=== PATIENT | male | born 1955 | race Caucasian/White ===

== ENCOUNTER 2017-11-05 14:05 | Inpatient (IN) | payer OTHER ==
[~2017-11-05] VITALS: Ht 177.8 cm; Wt 90.7 kg
--- NOTE | 2017-11-05 15:11 | ED GENERAL ADULT ---
See Addendum History of Present Illness General Chief Complaint: ETOH/Drug Related Complaint Stated Complaint: ETOH DETOX/[facility] Source: patient, family Exam Limitations: no limitations Vital Signs & Intake/Output Vital Signs & Intake/Output Vital Signs Date Time Temp Pulse Resp B/P B/P Pulse O2 O2 Flow FiO2 Mean Ox Delivery Rate 11/05 2246 98.0 68 18 148/78 11/05 2131 98.3 77 18 186/91 11/05 2125 98.3 77 18 186/91 98 Room Air 11/05 2030 98.0 78 18 165/84 11/05 1836 98.3 95 18 130/80 95 Room Air 11/05 1834 98.1 102 17 204/95 11/05 1834 98.1 102 17 204/95 11/05 1830 98.3 95 18 130/80 11/05 1635 98.1 102 17 204/95 11/05 1626 98.1 102 18 204/95 97 Room Air 11/05 1517 97 11/05 1425 97.5 88 20 218/105 97 Room Air Allergies Coded Allergies: No Known Allergies (11/05/17) Reconcile Medications Amlodipine Besylate 10 MG TABLET 1 TAB PO DAILY BP (Reported) Clonidine HCl 0.2 MG TABLET 1 TAB PO DAILY ANXIETY (Reported) Lisinopril 20 MG TABLET 1 TAB PO DAILY BP (Reported) Triage Note: REQUESTING DETOX FROM ETOH. USUALLY DRINKS OVER A 12 PACK OF BEER AND A LITER OF VODKA DAILY. DENIED SEIZURES WITH DETOX. DENIED SI/HI Triage Nurses Notes Reviewed? yes HPI: 62 yo M PMH HTN, HLD, EtOH abuse presenting with EtOH withdrawal. Patient normally drinks 1 L of hard alcohol and a 12 pack of beer daily, has been drinking heavily for "years", had 4-5 beers this morning, last drink 2 hrs ago, began to develop tremors and anxiety prompting presentation to the ED, desires EtOH detox at [facility] facility. Denies fevers, chest pain, palpitation, SOB, abdominal pain, N/V, diarrhea, headache, neck pain, syncope, seizures, falls or trauma. Denies illicit drug use. Hx of HTN, take lisinoprol/amlodipine, took dose yesterday, did not take today. (Kavya FRASER,Robert) Past History Travel History Traveled to [place] past 21 day No Medical History Any Pertinent Medical History? see below for history Cardiovascular: HTN, HIGH CHOLESTEROL Psychiatric: ETOH ABUSE Surgical History Surgical History: none Psychosocial History What is your primary language Lithuanian Tobacco Use: Current Daily Use Daily Tobacco Use Amount/Type: => 5 Cigarettes daily Family History Hx Contributory? Yes (Robert Hoff MD) Review of Systems Review of Systems Constitutional: Reports: see HPI. EENTM: Reports: no symptoms. Respiratory: Reports: no symptoms. Cardiovascular: Reports: no symptoms. GI: Reports: no symptoms. Genitourinary: Reports: no symptoms. Musculoskeletal: Reports: no symptoms. Skin: Reports: no symptoms. Neurological/Psychological: Reports: see HPI. Hematologic/Endocrine: Reports: no symptoms. Immunologic/Allergic: Reports: no symptoms. All Other Systems: Reviewed and Negative (Robert Hoff MD) Physical Exam Physical Exam General Appearance: well developed/nourished, no apparent distress, alert, anxious Eyes: Bilateral: PERRL, EOMI. Ears, Nose, Throat: Dry mucous membranes Neck: normal inspection, full range of motion, no midline tenderness Respiratory: normal breath sounds, lungs clear Cardiovascular: tachycardia Gastrointestinal: soft, non-tender Neurologic/Psych: Tremors Comments: General: Awake, alert, appears tremulous and anxious Neurologic: Bilateral upper extremity tremors and tongue fasiculations Core Measures ACS in differential dx? No CVA/TIA Diagnosis: No Sepsis Present: No Sepsis Focused Exam Completed? No (Robert Hoff MD) Progress Differential Diagnoses I considered the following diagnoses in my evaluation of the patient: [EtOH withdrawal, HTN, less likely DTs] Plan of Care: Orders Procedure Date/time Status Pathway - chart 11/05 1515 Active CIWA 11/05 1515 Active URINE DRUG SCREEN FOR ER ONLY 11/05 1421 Complete LIPASE 11/05 1421 Complete ETHANOL 11/05 1421 Complete COMPREHENSIVE METABOLIC PANEL 11/05 1421 Complete CBC WITHOUT DIFFERENTIAL 11/05 1421 Complete Current Medications Sig/Venkatesh Start time Last Medication Dose Stop Time Status Admin Lorazepam 2 MG Q2P PRN 11/05 1830 AC 11/05 (Ativan) 2136 Lorazepam 1 MG Q2P PRN 11/05 1830 AC 11/05 (Ativan) 2252 Folic Acid 1 MG DAILY 11/05 1515 UNVr 11/05 (Folic Acid) 04/17 0901 1550 Multivitamins 1 TAB DAILY 11/05 151 UNVr 11/05 (Theragran Vitamins) 1550 Thiamine HCl 100 MG DAILY 11/05 151 UNVr 11/05 (Vitamin B1) 1550 Laboratory Tests 11/05/17 1508: Anion Gap 13, Estimated GFR > 60, BUN/Creatinine Ratio 17.5, Glucose 92, Calcium 8.5, Total Bilirubin 0.5, AST 33, ALT 31, Alkaline Phosphatase 128 H, Total Protein 6.9, Albumin 3.9, Globulin 3.0, Albumin/Globulin Ratio 1.3, Lipase 130, CBC w Diff NO MAN DIFF REQ, RBC 4.37 L, MCV 90.5, MCH 30.8, MCHC 34.0, RDW 14.4 , MPV 7.1 L, Gran % 61.8, Lymphocytes % 21.2, Monocytes % 14.3 H, Eosinophils % 1.8, Basophils % 0.9, Absolute Granulocytes 3.3, Absolute Lymphocytes 1.1 L, Absolute Monocytes 0.8 H, Absolute Eosinophils 0.1, Absolute Basophils 0, Serum Alcohol 210.0 11/05/17 1501: Urine Opiates Screen < 100, Methadone Screen < 40, Barbiturate Screen < 60, Ur Phencyclidine Scrn < 6.00, Amphetamines Screen < 100, U Benzodiazepines Scrn < 85, Urine Cocaine Screen < 50, Urine Cannabis Screen < 5.00 Physician MDM: 62 yo M PMH HTN, HLD, EtOH abuse presenting with EtOH withdrawal. Tachycardic in the 100s, BP 200s systolic, neurologic exam as above. DDx: EtOH withdrawal, DTs, dehydration, untreated essential HTN. 2 mg IV ativan for withdrawal, 1L NS for presumed dehydration in the setting of excessive EtOH consumption, vitamins ordered, plan to monitor on CIWA with prn PO ativan, eventual transfer to outpatient detox. BP minimally improed with ativan, but tremors resolved and patient sleeping, will give missed daily antihypertensives. Plan to monitor overnigh, D/C to [facility] if CIWAs minimal and Sx controlled on PO medications. Initial ED EKG: none (Kavya FRASER,Robert) Departure Departure Disposition: STILL A PATIENT Condition: Stable Clinical Impression Primary Impression: Alcohol withdrawal Referrals: Patient Has No Primary Care Dr (PCP/Family) Departure Forms: Customer Survey General Discharge Information (Robert Hoff MD) Resident Co-Sign Statement Statement: ED Attending supervision documentation- I saw and evaluated the patient. I have also reviewed all the pertinent lab results and diagnostic results. I agree with the findings and the plan of care as documented in the Resident's documentation. x I have reviewed the ED Record and agree with the Resident's documentation. [] Additions or exceptions (if any) to the Resident's note and plan are summarized below: [] (Lauri FRASER,Armando) Critical Care Note Critical Care Note Critical Care Time: non-applicable (Kavya FRASER,Robert)
[2017-11-05 15:18] LABS: ABSOLUTE BASOPHIL COUNT 0 /CUMM (0.0-0.2); ABSOLUTE EOSINOPHIL COUNT 0.1 /CUMM (0.0-0.7); ABSOLUTE GRANULOCYTE CT 3.3 /CUMM (1.4-6.5); ABSOLUTE LYMPH COUNT 1.1 /CUMM (1.2-3.4); ABSOLUTE MONOCYTE COUNT 0.8 /CUMM (0.10-0.60); BASOPHIL % 0.9 % (0.0-2.0); EOSINOPHIL % 1.8 % (0-5); GRANULOCYTE % 61.8 % (42.2-75.2); HEMATOCRIT 39.5 % (42-52); MEAN CORPUSCULAR HGB 30.8 PG (27.0-31.0); MEAN CORPUSCULAR VOLUME 90.5 FL (80.0-94.0); MEAN PLATELET VOLUME 7.1 FL (7.4-10.4); PLATELET COUNT 294 /CUMM (130-400); RBC DISTRIBUTION WIDTH 14.4 % (11.5-14.5); RED BLOOD CELL CT 4.37 /CUMM (4.70-6.10); WHITE BLOOD CELL COUNT 5.3 /CUMM (4.8-10.8)
[2017-11-05 16:35] VITALS: BP 204/95
[2017-11-05 18:30] VITALS: BP 130/80
[2017-11-05] MEDS ORDERED: AMLODIPINE BESY10 M1 PO (18:58)
[2017-11-05] MEDS ORDERED: LISINOPRIL20 M1 PO (18:58)
[2017-11-05] MEDS ORDERED: CLONIDINE HCL0.2 M1 PO (18:58)
[2017-11-05 20:30] VITALS: BP 165/84
[2017-11-05 21:31] VITALS: BP 186/91
[2017-11-05 22:47] VITALS: BP 148/78
[2017-11-05 23:45] VITALS: BP 146/84
[2017-11-06] VITALS (10 sets, daily range): BP systolic 148–178; BP diastolic 82–110
--- NOTE | 2017-11-06 17:00 | History & Physical ---
Oni Pablo MD 11/06/17 0839: General Information and HPI History of Present Illness: Mr. Funez is a 62-year-old male with past medical history of hypertension, hyperlipidemia, and alcohol abuse who presents seeking detox from alcohol. The patient reports that he has been drinking every day for the past 5 months. Previously, he was clean for 3 months. He has been drinking about one fifth of vodka and 6 pack of beer per day. His longest period of sobriety has been 9 years and he has been to rehabilitation 3-4 times. He has been previously hospitalized for alcohol detox. He is currently looking to become sober. He denies any chest pain, shortness of breath, bone pain, nausea, vomiting, dysuria , diarrhea, fevers, or rash. He is a current smoker. Allergies/Medications Allergies: Coded Allergies: No Known Allergies (11/05/17) Home Med list Amlodipine Besylate 10 MG TABLET 1 TAB PO DAILY BP (Reported) Clonidine HCl 0.2 MG TABLET 1 TAB PO DAILY ANXIETY (Reported) Lisinopril 20 MG TABLET 1 TAB PO DAILY BP (Reported) Past History Travel History Traveled to [place] past 21 day No Medical History Cardiovascular: HTN, HIGH CHOLESTEROL Psychiatric: ETOH ABUSE Surgical History Surgical History: none Past Family/Social History Psychosocial History Smoking Status: Current Everyday Smoker ETOH Use: alcoholic Illicit Drug Use: denies illicit drug use Review of Systems Review of Systems Constitutional: Reports: no symptoms. EENTM: Reports: no symptoms. Cardiovascular: Reports: no symptoms. Respiratory: Reports: no symptoms. GI: Reports: no symptoms. Genitourinary: Reports: no symptoms. Musculoskeletal: Reports: no symptoms. Skin: Reports: no symptoms. Neurological/Psychological: Reports: see HPI. Hematologic/Endocrine: Reports: no symptoms. Immunologic/Allergic: Reports: no symptoms. All Other Systems: Reviewed and Negative Exam & Diagnostic Data Last 24 Hrs of Vital Signs/I&O Vital Signs Date Time Temp Pulse Resp B/P B/P Pulse O2 O2 Flow FiO2 Mean Ox Delivery Rate 11/06 1556 98.3 78 18 178/110 11/06 1549 98.3 78 18 178/110 98 Room Air 11/06 1441 97.4 74 18 172/100 100 11/06 1339 97.1 108 18 175/100 11/06 1339 97.1 108 18 175/100 11/06 1339 97.1 108 18 175/100 11/06 1321 97.1 108 18 175/100 100 11/06 1135 98.4 78 18 181/100 98 11/06 1036 97.8 95 20 148/90 11/06 1014 95 148/90 11/06 0900 97.8 95 20 148/90 98 11/06 0158 98.0 78 18 152/82 96 Room Air 11/06 0147 98.0 78 18 152/82 11/06 0034 98.3 84 18 179/102 Room Air 11/05 2345 97.8 82 18 146/84 11/05 2345 97.8 82 18 146/84 96 Room Air 11/05 2247 98.0 68 18 148/78 11/05 2131 98.3 77 18 186/91 11/05 2125 98.3 77 18 186/91 98 Room Air 11/05 2030 98.0 78 18 165/84 11/05 1836 98.3 95 18 130/80 95 Room Air 11/05 1834 98.1 102 17 204/95 11/05 1834 98.1 102 17 204/95 11/05 1830 98.3 95 18 130/80 Physical Exam General Appearance Alert, Oriented X3, Cooperative, Mild Distress, tremulous, anxious Cardiovascular Regular Rate, Normal S1, Normal S2 Lungs Clear to Auscultation Abdomen Normal Bowel Sounds, Soft, No Tenderness Neurological Normal Speech Assessment/Plan Assessment: Mr. Funez is a 62-year-old male with past medical history of hypertension, hyperlipidemia, and alcohol abuse who presents seeking detox from alcohol. On presentation, vital signs were T 97.5, HR 80, RR 20, BP 07/25/2017/105, saturating 97% on room air. Blood pressure improved to 170/110. Laboratories were sticking for hemoglobin 13.4, MCV 90.5, normal BEP, alkaline phosphatase 128, alcohol level to 10. He will be admitted to general medicine and treated for following problems: 1. Alcohol withdrawal 2. Normocytic anemia 3. Hypertension #Alcohol withdrawal: Patient requesting detox. -Lorazepam 2 mg every 6 hours -[facility] protocol -Multivitamins, thiamine, folic acid -Social work consult -Psychiatry consult #Hypertension: Patient hypertensive to 200 systolic, improved with lisinopril and amlodipine. -Continue lisinopril, clonidine and amlodipine. -Monitor BP #Normocytic anemia: Likely secondary to alcohol use. -Iron studies #Chronic medical problems: -Continue other home medications DVT prophylaxis with enoxaparin Heart healthy diet Full code As Ranked By This Provider Problem List: 1. Alcohol withdrawal Core Measures/Misc (04/09) Acute Coronary Syndrome ACS Diagnosis: No Congestive Heart Failure Congestive Heart Failure Diagnosis No Cerebrovascular Accident CVA/TIA Diagnosis: No VTE (View Protocol) VTE Risk Factors Age>40 No Mechanical VTE Prophylaxis d/t N/A MechProphylax Ordered No VTE Pharm Prophylaxis d/t NA PharmProphylax ordered Sepsis (View protocol) Sepsis Present: No Samina Mckee MD 11/06/17 1843: Past Family/Social History Psychosocial History Other Social History: Family history non contributory to present illness. Attending MD Review Statement Attending Statement Attending MD Statement: examined this patient, discuss w/resident/PA/ORGAN GRINDER, agreed w/resident/PA/ORGAN GRINDER, reviewed EMR data (avail), discussed with nursing, reviewed images Attending Assessment/Plan: 62-year-old male with past medical history of hypertension, hyperlipidemia active tobacco and alcohol abuse who came to the emergency room on 11/05 requesting detox. He was observed in the emergency room overnight and over the past 24 hours has developed high CIWA scores requiring Ativan with tachycardia and hypertension. Patient carries a diagnosis of hypertension and is on lisinopril, clonidine and Norvasc as an outpatient. At this point will bring him into GEN med and treat him for impending DTs. We'll start him on Ativan around- the-clock along with Ativan as per CIWA. We'll have to watch his heart rate and pressure closely. We'll also continue his clonidine, lisinopril and Norvasc. We' ll give him thiamine, folate, multivitamins. Get a social work consult for alcohol rehabilitation options as an outpatient. Put him on DVT prophylaxis and follow closely Rafiq Porter 11/06/17 1844: Resident Review Statement Resident Statement: examined this patient, discussed with graduate intern, agreed with graduate intern, discussed with family, reviewed EMR data (avail), reviewed images, amended to note Other Findings: 62-year-old gentleman with history of hypertension, chronic alcohol use presented to [facility] ED on 11/05/2017 requesting alcohol detox. His last drink was likely yesterday morning. No previous history of alcohol withdrawal seizures or DTs. He started his current binge 5 months ago in the setting of recent monetary stressors as well as disturbed personal relationship. Denies any suicidal or homicidal ideation. Current everyday smoker, denies any other recreational use. No history of intubation, but does admit to ICU admission at [place], [place] in the past. On exam, he seems anxious and tremulous. We will admit the patient to general medicine floor for alcohol detox. Ativan [id number] and when necessary per TYRA. Thiamine, multivitamin and folic acid. Psych and social consult. Blood pressure controlled with home dose of lisinopril, amlodipine and clonidine. Full code. Lovenox for DVT prophylaxis. Regular diet.
--- NOTE | 2017-11-06 17:05 | Admission Certification ---
Admission Certification Certification Statement - As attending physician, I certify that at the time of - admission, based on clinical presentation, severity of - symptoms, need for further diagnostic testing and - therapeutic interventions, and risk of adverse outcomes - without in-hospital treatment, in my clinical assessment, - this patient requires an acute hospital stay for a minimum - of two nights or longer. I have also considered psychsocial - factors such as support system, advanced age, financial - issues, cognitive issues, and failed out-patient treatments, - past re-admission history, safety of patient, and lack of - compliance as applicable. Specific rationale supporting this admission is: Acute alcohol withdrawal needs Ativan and CIWA protocol.
[2017-11-07] VITALS (9 sets, daily range): BP systolic 100–170; BP diastolic 60–100
--- NOTE | 2017-11-07 07:15 | PN- Housestaff ---
See Addendum Subjective Follow-up For: Alcohol withdrawal Subjective: No overnight events. Patient feeling anxious, tremors, and headache this morning. No chest pain, shortness of breath, abdominal pain. He is interested in going to rehabilitation Review of Systems Constitutional: Reports: no symptoms. EENTM: Reports: no symptoms. Cardiovascular: Reports: no symptoms. Respiratory: Reports: no symptoms. Gastrointestinal: Reports: no symptoms. Genitourinary: Reports: no symptoms. Musculoskeletal: Reports: no symptoms. Skin: Reports: no symptoms. Neurological/Psychological: Reports: see HPI. Hematologic/Endocrine: Reports: no symptoms. Immunologic/Allergic: Reports: no symptoms. Objective Last 24 Hrs of Vital Signs/I&O Vital Signs Date Time Temp Pulse Resp B/P B/P Pulse O2 O2 Flow FiO2 Mean Ox Delivery Rate 11/07 0600 98.3 77 20 170/100 96 Room Air 11/07 0200 98.7 78 20 162/90 11/07 0155 98.7 78 20 162/90 94 Room Air 11/07 0000 98.2 75 18 150/90 11/06 2258 150/90 11/06 2032 98.2 75 18 170/98 96 Room Air 11/06 2020 98.2 64 18 170/98 11/06 1932 97.8 70 18 189/104 98 Room Air 11/06 1858 98.3 78 18 178/110 11/06 1839 98.4 78 18 178/100 11/06 1708 98.5 76 18 175/105 11/06 1556 98.3 78 18 178/110 11/06 1549 98.3 78 18 178/110 98 Room Air 11/06 1441 97.4 74 18 172/100 100 11/06 1339 97.1 108 18 175/100 11/06 1339 97.1 108 18 175/100 11/06 1339 97.1 108 18 175/100 11/06 1321 97.1 108 18 175/100 100 11/06 1135 98.4 78 18 181/100 98 11/06 1036 97.8 95 20 148/90 11/06 1014 95 148/90 11/06 0900 97.8 95 20 148/90 98 Intake & Output 11/07 0800 11/07 0000 11/06 1600 Intake Total 260 Output Total 200 Balance 60 Intake, IV 10 Intake, Oral 250 Number 0 Bowel Movements Output, Urine 200 Physical Exam General Appearance: Alert, Oriented X3, Cooperative, No Acute Distress Cardiovascular: Regular Rate, Normal S1, Normal S2 Lungs: Clear to Auscultation Abdomen: Normal Bowel Sounds, Soft, No Tenderness Extremities: No Edema, Normal Pulses, No Tenderness/Swelling Current Medications: Current Medications Sig/Venkatesh Start time Last Medication Dose Route Stop Time Status Admin Amlodipine Besylate 0 .STK-MED ONE 11/06 1323 DC PO Amlodipine Besylate 10 MG DAILY 11/06 1209 AC 11/06 PO 1339 Baclofen 20 MG STAT STA 11/06 1210 CAN PO 11/06 1211 Clonidine 0.2 MG DAILY 11/07 0900 AC PO Enoxaparin Sodium 40 MG DAILY 11/07 0900 AC SC Folic Acid 0 .STK-MED ONE 11/06 1038 DC PO Folic Acid 1 MG DAILY 11/05 1515 AC 11/06 PO 11/07 0901 1036 Gabapentin 300 MG Q8 11/06 1400 AC 11/07 PO 0645 Gabapentin 0 .STK-MED ONE 11/06 1323 DC PO Lisinopril 20 MG DAILY 11/07 0900 AC PO Lisinopril 0 .STK-MED ONE 11/06 1853 DC PO Lisinopril 10 MG ONCE ONE 11/06 1845 DC 11/06 PO 11/06 1846 1858 Lisinopril 10 MG DAILY 11/06 1810 DC PO Lisinopril 0 .STK-MED ONE 11/06 1323 DC PO Lisinopril 20 MG ONCE ONE 11/06 1230 DC 11/06 PO 11/06 1231 1339 Lorazepam 2 MG Q6 11/07 0609 AC 11/07 PO 0645 Lorazepam 0 Q2 HRS NEEDED PRN 11/06 2030 AC 11/07 IV 0201 Lorazepam 0 .STK-MED ONE 11/06 1951 DC PO Lorazepam 0 .STK-MED ONE 11/06 1854 DC PO Lorazepam 2 MG Q6 11/06 1815 DC 11/06 PO 11/07 0001 2330 Lorazepam 2 MG Q2P PRN 11/06 1815 DC PO Lorazepam 1 MG Q2P PRN 11/06 1815 DC PO Lorazepam 0 .STK-MED ONE 11/06 1038 DC PO Lorazepam 2 MG Q2P PRN 11/05 1830 DC 11/06 PO 1943 Lorazepam 1 MG Q2P PRN 11/05 1830 DC 11/05 PO 2252 Multivitamins 0 .STK-MED ONE 11/06 1038 DC PO Multivitamins 1 TAB DAILY 11/05 1515 AC 11/06 PO 1036 Nicotine 14 MG DAILY 11/06 2057 11/06 TOP 2133 Thiamine HCl 0 .STK-MED ONE 11/06 1038 DC PO Thiamine HCl 100 MG DAILY 11/05 1515 11/06 PO 1036 Assessment/Plan Assessment: Mr. Funez is a 62-year-old male with past medical history of hypertension, hyperlipidemia, and alcohol abuse who presented seeking detox from alcohol. Problem List: 1. Alcohol withdrawal 2. Normocytic anemia 3. Hypertension #Alcohol withdrawal: Patient requesting detox. CIWA 0-14 overnight, required 2mg IV lorazepam. -Lorazepam 2 mg every 6 hours -CIWA protocol -Multivitamins, thiamine, folic acid -Social work consult #Hypertension: Patient hypertensive to 200 systolic, improved with lisinopril and amlodipine. -Continue lisinopril, clonidine and amlodipine. -Monitor BP #Normocytic anemia: Likely secondary to alcohol use. Iron studies normal. -CTM #Chronic medical problems: -Continue other home medications DVT prophylaxis with enoxaparin Heart healthy diet Full code Problem List: 1. Alcohol withdrawal Pain Ratin Pain Location: no Pain Goal: Remain pain free Pain Plan: see a/p Tomorrow's Labs & Rationales: bep
[2017-11-07 09:23] LABS: PT 11.4 SEC (9.4-12.5)
[2017-11-08] VITALS (12 sets, daily range): BP systolic 112–128; BP diastolic 70–90
--- NOTE | 2017-11-08 07:11 | PN- Housestaff ---
See Addendum Subjective Follow-up For: Alcohol withdrawal Subjective: No overnight events. Patient slept well. He is complaining of mild headache but no anxiety or tremors. No chest pain, shortness of breath, or other issues. Review of Systems Constitutional: Reports: no symptoms. EENTM: Reports: no symptoms. Cardiovascular: Reports: no symptoms. Respiratory: Reports: no symptoms. Gastrointestinal: Reports: no symptoms. Genitourinary: Reports: no symptoms. Musculoskeletal: Reports: no symptoms. Skin: Reports: no symptoms. Neurological/Psychological: Reports: see HPI. Hematologic/Endocrine: Reports: no symptoms. Immunologic/Allergic: Reports: no symptoms. Objective Last 24 Hrs of Vital Signs/I&O Vital Signs Date Time Temp Pulse Resp B/P B/P Pulse O2 O2 Flow FiO2 Mean Ox Delivery Rate 11/08 0639 97.7 60 20 112/70 95 Room Air 11/08 0205 97.5 75 20 128/78 95 Room Air 11/07 2200 98.5 84 20 132/68 11/07 2040 98.5 84 20 132/68 94 Room Air 11/07 1346 97.6 73 20 100/60 94 Room Air 11/07 1217 98.2 70 20 124/80 94 Room Air 11/07 1014 98.3 82 20 142/80 97 Room Air 11/07 0856 170/100 Intake & Output 11/08 0800 11/08 0000 11/07 1600 Intake Total 250 490 800 Output Total Balance 250 490 800 Intake, IV 10 10 Intake, Oral 240 480 800 Physical Exam General Appearance: Alert, Oriented X3, Cooperative, No Acute Distress Cardiovascular: Regular Rate, Normal S1, Normal S2 Lungs: Clear to Auscultation Extremities: No Edema, Normal Pulses, No Tenderness/Swelling Current Medications: Current Medications Sig/Venkatesh Start time Last Medication Dose Route Stop Time Status Admin Amlodipine Besylate 10 MG DAILY 11/06 1209 AC 11/07 PO 0858 Clonidine 0.2 MG DAILY 11/07 0900 AC 11/07 PO 0856 Enoxaparin Sodium 40 MG DAILY 11/07 0900 AC 11/07 SC 0857 Folic Acid 1 MG DAILY 11/05 1515 DC 11/07 PO 11/07 0901 0901 Gabapentin 300 MG Q8 11/06 1400 AC 11/08 PO 0551 Lisinopril 20 MG DAILY 11/07 0900 AC 11/07 PO 0858 Lorazepam 1.5 MG Q6 11/07 1200 AC 11/08 PO 0551 Lorazepam 2 MG Q6 11/07 0609 DC 11/07 PO 0645 Lorazepam 0 Q2 HRS NEEDED PRN 11/06 2030 AC 11/08 IV 0123 Multivitamins 1 TAB DAILY 11/05 1515 AC 11/07 PO 0859 Nicotine 14 MG DAILY 11/06 2057 11/07 TOP 0857 Patient Medication 1 ED ONE ONE 11/07 1645 MS 11/07 Teaching ED 11/07 1646 1751 Thiamine HCl 100 MG DAILY 11/05 1515 AC 11/07 PO 0859 Assessment/Plan Assessment: Mr. Funez is a 62-year-old male with past medical history of hypertension, hyperlipidemia, and alcohol abuse who presented seeking detox from alcohol. Problem List: 1. Alcohol withdrawal 2. Normocytic anemia 3. Hypertension #Alcohol withdrawal: Patient requested detox on arrival. CIWA has been scoring 2 in last 24H. -Lorazepam 1 mg every 6 hours -[facility] protocol -Multivitamins, thiamine, folic acid -Social work consult #Hypertension: Patient hypertensive to 200 systolic on admission, improved with lisinopril and amlodipine. He has been normotensive since then. -Continue lisinopril, clonidine and amlodipine. -Monitor BP #Normocytic anemia: Likely secondary to alcohol use. Iron studies normal. -CTM #Chronic medical problems: -Continue other home medications DVT prophylaxis with enoxaparin Heart healthy diet Full code Problem List: 1. Alcohol withdrawal Pain Ratin Pain Location: no Pain Goal: Remain pain free Pain Plan: see a/p Tomorrow's Labs & Rationales: no
[2017-11-09] VITALS (9 sets, daily range): BP systolic 118–140; BP diastolic 66–88
--- NOTE | 2017-11-09 07:05 | PN- Housestaff ---
See Addendum Subjective Follow-up For: EtOH withdrawal Subjective: No overnight events. Patient has a mild headache this morning but otherwise has no chest pain, shortness of breath, abdominal pain, nausea, vomiting, or diarrhea. He feels well. Review of Systems Constitutional: Reports: no symptoms. EENTM: Reports: no symptoms. Cardiovascular: Reports: no symptoms. Respiratory: Reports: no symptoms. Gastrointestinal: Reports: no symptoms. Genitourinary: Reports: no symptoms. Musculoskeletal: Reports: no symptoms. Skin: Reports: no symptoms. Neurological/Psychological: Reports: see HPI. Hematologic/Endocrine: Reports: no symptoms. Immunologic/Allergic: Reports: no symptoms. Objective Last 24 Hrs of Vital Signs/I&O Vital Signs Date Time Temp Pulse Resp B/P B/P Pulse O2 O2 Flow FiO2 Mean Ox Delivery Rate 11/09 0620 98.0 61 18 118/66 95 Room Air 11/09 0400 98.1 67 19 132/88 11/09 0200 98.1 67 20 132/88 11/09 0200 98.1 67 18 132/88 96 Room Air 11/09 0000 98.3 82 18 126/76 11/08 2200 98.3 82 18 126/76 11/08 2148 98.7 85 20 114/74 96 11/09 2015 98.3 82 17 126/76 95 11/08 2000 98.3 82 18 126/76 11/08 1630 98.4 76 20 118/70 11/08 1536 98.4 76 20 118/70 94 11/08 1138 98.5 77 20 120/90 95 11/08 0843 80 125/80 11/08 0843 80 125/80 11/08 0837 80 125/80 11/08 0830 97.8 80 20 125/80 11/08 0800 Room Air Intake & Output 11/09 0800 11/09 0000 11/08 1600 Intake Total 460 600 Output Total Balance 460 600 Intake, Oral 460 600 Number 1 Bowel Movements Physical Exam General Appearance: Alert, Oriented X3, Cooperative, No Acute Distress Cardiovascular: Regular Rate, Normal S1, Normal S2 Lungs: Clear to Auscultation Abdomen: Normal Bowel Sounds, Soft, No Tenderness Extremities: No Edema, Normal Pulses, No Tenderness/Swelling Current Medications: Current Medications Sig/Venkatesh Start time Last Medication Dose Route Stop Time Status Admin Amlodipine Besylate 10 MG DAILY 11/06 1209 AC 11/08 PO 0843 Clonidine 0.2 MG DAILY 11/07 0900 AC 11/08 PO 0837 Enoxaparin Sodium 40 MG DAILY 11/07 0900 AC 11/08 SC 0844 Gabapentin 300 MG Q8 11/06 1400 AC 11/09 PO 0642 Lisinopril 20 MG DAILY 11/07 0900 AC 11/08 PO 0843 Lorazepam 1 MG Q2P PRN 11/09 0700 UNVr PO Lorazepam 1 MG Q6 11/08 1200 AC 11/09 PO 0642 Lorazepam 1.5 MG Q6 11/07 1200 DC 11/08 PO 0551 Lorazepam 0 Q2 HRS NEEDED PRN 11/06 2030 DC 11/08 IV 0928 Multivitamins 1 TAB DAILY 11/05 1515 AC 11/08 PO 0843 Nicotine 14 MG DAILY 11/06 2057 AC 11/08 TOP 0837 Thiamine HCl 100 MG DAILY 11/05 1515 AC 11/08 PO 0843 Last 24 Hrs of Lab/Rocky Results Last 24 Hrs of Labs/Mics: Laboratory Tests 11/08/17 0805: Anion Gap 9, Estimated GFR > 60, BUN/Creatinine Ratio 21.1 Assessment/Plan Assessment: Mr. Funez is a 62-year-old male with past medical history of hypertension, hyperlipidemia, and alcohol abuse who presented seeking detox from alcohol. Problem List: 1. Alcohol withdrawal 2. Normocytic anemia 3. Hypertension #Alcohol withdrawal: Patient requested detox on arrival. CIWA has been scoring 0 -8. He has required 2 mg of IV lorazepam in addition to the standing lorazepam in last 24H. -Lorazepam 1 mg every 8 hours -[facility] protocol -Multivitamins, thiamine, folic acid -Social work consult - [facility] will be going [facility] when medically stabilized #Hypertension: Patient hypertensive to 200 systolic on admission, improved with lisinopril and amlodipine. He has been normotensive since then. -Continue lisinopril, clonidine and amlodipine. -Monitor BP #Normocytic anemia: Likely secondary to alcohol use. Iron studies normal. -CTM #Chronic medical problems: -Continue other home medications DVT prophylaxis with enoxaparin Heart healthy diet Full code Problem List: 1. Alcohol withdrawal Pain Ratin Pain Location: no Pain Goal: Remain pain free Pain Plan: see a/p Tomorrow's Labs & Rationales: no
[2017-11-10 02:08] VITALS: BP 122/82
[2017-11-10 06:21] VITALS: BP 114/76
--- NOTE | 2017-11-10 07:01 | PN- Housestaff ---
See Addendum Subjective Follow-up For: EtOH withdrawal Subjective: Patient had an acute anxiety attack last night. He describes feeling dizzy while walking, like he was going to pass out, and having anxiety. It was relieved by lorazepam. He slept well after that. He has no complaints this morning, including no anxiety, tremors, headache, chest pain, or shortness of breath. Review of Systems Constitutional: Reports: no symptoms. EENTM: Reports: no symptoms. Cardiovascular: Reports: no symptoms. Respiratory: Reports: no symptoms. Gastrointestinal: Reports: no symptoms. Genitourinary: Reports: no symptoms. Musculoskeletal: Reports: no symptoms. Skin: Reports: no symptoms. Neurological/Psychological: Reports: see HPI. Hematologic/Endocrine: Reports: no symptoms. Immunologic/Allergic: Reports: no symptoms. Objective Last 24 Hrs of Vital Signs/I&O Vital Signs Date Time Temp Pulse Resp B/P B/P Pulse O2 O2 Flow FiO2 Mean Ox Delivery Rate 11/10 0621 97.7 66 14 114/76 96 Room Air 11/10 0208 97.6 66 14 122/82 96 Room Air 11/09 2200 98.9 74 14 132/70 96 Room Air 11/09 1800 98.7 74 18 130/88 97 Room Air 11/09 1428 98.8 85 18 140/80 96 Room Air 11/09 1148 98.6 94 18 120/80 97 Room Air 11/09 0930 98.0 61 18 118/66 11/09 0930 98.0 61 18 118/66 11/09 0930 98.0 61 18 118/66 Intake & Output 11/10 0800 11/10 0000 11/09 1600 Intake Total 500 800 Output Total 400 Balance 500 400 Intake, Oral 500 800 Output, Urine 400 Physical Exam General Appearance: Alert, Oriented X3, Cooperative, No Acute Distress Cardiovascular: Regular Rate, Normal S1, Normal S2 Lungs: Clear to Auscultation Abdomen: Normal Bowel Sounds, Soft, No Tenderness Extremities: No Edema, Normal Pulses, No Tenderness/Swelling Current Medications: Current Medications Sig/Venkatesh Start time Last Medication Dose Route Stop Time Status Admin Amlodipine Besylate 10 MG DAILY 11/06 1209 AC 11/09 PO 0930 Clonidine 0.2 MG DAILY 11/07 09 AC 11/09 PO 0930 Enoxaparin Sodium 40 MG DAILY 11/07 0900 AC 11/09 SC 0929 Gabapentin 300 MG Q8 11/06 1400 AC 11/10 PO 0622 Lisinopril 20 MG DAILY 11/07 0900 AC 11/09 PO 0930 Lorazepam 1 MG Q8 11/09 1400 DC PO Lorazepam 0.5 MG Q6 11/09 0847 AC 11/10 PO 11/16 0846 0622 Lorazepam 1 MG Q2P PRN 11/09 0700 AC 11/09 PO 2121 Lorazepam 1 MG Q6 11/08 1200 DC 11/09 PO 0642 Lorazepam 0 Q2 HRS NEEDED PRN 11/06 2030 DC 11/08 IV 0928 Multivitamins 1 TAB DAILY 11/05 1515 AC 11/09 PO 0930 Nicotine 14 MG DAILY 11/06 2057 AC 11/09 TOP 0929 Thiamine HCl 100 MG DAILY 11/05 1515 AC 11/09 PO 0930 Assessment/Plan Assessment: Mr. Funez is a 62-year-old male with past medical history of hypertension, hyperlipidemia, and alcohol abuse who presented seeking detox from alcohol. Problem List: 1. Alcohol withdrawal 2. Normocytic anemia 3. Hypertension #Alcohol withdrawal: Patient requested detox on arrival. CIWA has been scoring 0 -8. He has required 1 mg of PO lorazepam in addition to the standing lorazepam in last 24H. however, he did have an acute anxiety attack last night and may be because we are tapering too quickly. -Lorazepam 0.5 mg every 6 hours, consider not tapering further today -[facility] protocol -Multivitamins, thiamine, folic acid -Social work consult - he will be going [facility] when medically stabilized -Orthostatic vitals #Hypertension: Patient hypertensive to 200 systolic on admission, improved with lisinopril and amlodipine. He has been normotensive since then. -Continue lisinopril, clonidine and amlodipine. -Monitor BP #Normocytic anemia: Likely secondary to alcohol use. Iron studies normal. -CTM #Chronic medical problems: -Continue other home medications DVT prophylaxis with enoxaparin Heart healthy diet Full code Problem List: 1. Alcohol withdrawal Pain Ratin Pain Location: no Pain Goal: Remain pain free Pain Plan: see a/p Tomorrow's Labs & Rationales: no
[2017-11-10 10:11] VITALS: BP 140/96
[2017-11-10 15:00] VITALS: BP 140/85
[2017-11-10 22:32] VITALS: BP 140/70
--- NOTE | 2017-11-11 06:10 | PN- Housestaff ---
See Addendum Subjective Follow-up For: EtOH Subjective: No overnight events. He feels a little bit shaky last night but otherwise feels well this morning, no chest pain or shortness of breath. Review of Systems Constitutional: Reports: no symptoms. EENTM: Reports: no symptoms. Cardiovascular: Reports: no symptoms. Respiratory: Reports: no symptoms. Gastrointestinal: Reports: no symptoms. Genitourinary: Reports: no symptoms. Musculoskeletal: Reports: no symptoms. Skin: Reports: no symptoms. Neurological/Psychological: Reports: see HPI. Hematologic/Endocrine: Reports: no symptoms. Immunologic/Allergic: Reports: no symptoms. Objective Last 24 Hrs of Vital Signs/I&O Vital Signs Date Time Temp Pulse Resp B/P B/P Pulse O2 O2 Flow FiO2 Mean Ox Delivery Rate 11/10 2232 98.2 66 18 140/70 98 Room Air 11/10 1500 98.5 68 20 140/85 99 Room Air 11/10 1011 70 140/96 11/10 0851 114/76 11/10 0851 114/76 11/10 0850 114/76 11/10 0621 97.7 66 14 114/76 96 Room Air Intake & Output 11/11 0800 11/11 0000 11/10 1600 Intake Total 300 250 250 Output Total Balance 300 250 250 Intake, Oral 300 250 250 Physical Exam General Appearance: Alert, Oriented X3, Cooperative, No Acute Distress Cardiovascular: Regular Rate, Normal S1, Normal S2 Lungs: Clear to Auscultation Abdomen: Normal Bowel Sounds, Soft, No Tenderness Current Medications: Current Medications Sig/Venkatesh Start time Last Medication Dose Route Stop Time Status Admin Amlodipine Besylate 10 MG DAILY 11/06 1209 AC 11/10 PO 0851 Clonidine 0.2 MG DAILY 11/07 0900 AC 11/10 PO 0851 Enoxaparin Sodium 40 MG DAILY 11/07 0900 AC 11/10 SC 0852 Gabapentin 300 MG Q8 11/06 1400 AC 11/11 PO 0558 Lisinopril 20 MG DAILY 11/07 0900 AC 11/10 PO 0850 Lorazepam 0.5 MG Q8 11/11 1400 UNVr PO 11/18 1359 Lorazepam 0.5 MG Q6 11/09 0847 DC 11/11 PO 11/16 0846 0558 Lorazepam 1 MG Q2P PRN 11/09 0700 AC 11/10 PO 1049 Multivitamins 1 TAB DAILY 11/05 1515 AC 11/10 PO 0851 Nicotine 14 MG DAILY 11/06 2056 11/10 TOP 0854 Patient Medication 1 ED ONE ONE 11/10 1715 [facility] ED 11/10 1716 Thiamine HCl 100 MG DAILY 11/05 1515 11/10 PO 0850 Assessment/Plan Assessment: Mr. Funez is a 62-year-old male with past medical history of hypertension, hyperlipidemia, and alcohol abuse who presented seeking detox from alcohol. Problem List: 1. Alcohol withdrawal 2. Normocytic anemia 3. Hypertension #Alcohol withdrawal: Patient requested detox on arrival. CIWA has been scoring 0 -7. He has required 0 mg of PO lorazepam in addition to the standing lorazepam in last 24H. -Lorazepam 0.5 mg every 8H, continue taper -[facility] protocol -Multivitamins, thiamine, folic acid -Social work consult - he will be going [facility] when medically stabilized, likely Monday #Hypertension: Patient hypertensive to 200 systolic on admission, improved with lisinopril and amlodipine. He has been normotensive since then. -Continue lisinopril, clonidine and amlodipine. -Monitor BP #Normocytic anemia: Likely secondary to alcohol use. Iron studies normal. -CTM #Chronic medical problems: -Continue other home medications DVT prophylaxis with enoxaparin Heart healthy diet Full code Problem List: 1. Alcohol withdrawal Pain Ratin Pain Location: no Pain Goal: Remain pain free Pain Plan: see a/p Tomorrow's Labs & Rationales: no
[2017-11-11 06:22] VITALS: BP 132/80
[2017-11-11 13:55] VITALS: BP 120/80
[2017-11-11 18:00] VITALS: BP 120/80
[2017-11-11 22:00] VITALS: BP 122/56
[2017-11-11 22:16] VITALS: BP 122/56
[2017-11-12] VITALS (10 sets, daily range): BP systolic 110–122; BP diastolic 56–80
[2017-11-12 09:20] LABS: ABSOLUTE BASOPHIL COUNT 0.1 /CUMM (0.0-0.2); ABSOLUTE EOSINOPHIL COUNT 0.1 /CUMM (0.0-0.7); ABSOLUTE GRANULOCYTE CT 5.9 /CUMM (1.4-6.5); ABSOLUTE LYMPH COUNT 1.9 /CUMM (1.2-3.4); ABSOLUTE MONOCYTE COUNT 0.7 /CUMM (0.10-0.60); BASOPHIL % 0.6 % (0.0-2.0); EOSINOPHIL % 1.5 % (0-5); GRANULOCYTE % 68.3 % (42.2-75.2); HEMATOCRIT 42.2 % (42-52); MEAN CORPUSCULAR HGB 30.6 PG (27.0-31.0); MEAN CORPUSCULAR HGB CONC 33.7 G/DL (33.0-37.0); MEAN CORPUSCULAR VOLUME 90.9 FL (80.0-94.0); MEAN PLATELET VOLUME 8.3 FL (7.4-10.4); PLATELET COUNT 294 /CUMM (130-400); RBC DISTRIBUTION WIDTH 14.3 % (11.5-14.5); RED BLOOD CELL CT 4.64 /CUMM (4.70-6.10)
[2017-11-12 10:05] LABS: WHITE BLOOD CELL COUNT 8.6 /CUMM (4.8-10.8)
--- NOTE | 2017-11-12 12:11 | PN- Att Addend ---
Attending Addendum Attending Brief Note Patient seen and examined overall doing better. CIWA scores are running low. Vital Signs Date Time Temp Pulse Resp B/P B/P Pulse O2 O2 Flow FiO2 Mean Ox Delivery Rate 11/12 0859 58 118/60 11/12 0859 58 118/60 11/12 0858 58 118/60 11/12 0620 98.5 58 18 118/60 95 Room Air 11/12 0600 98.5 58 18 118/60 11/12 0400 98.2 64 18 122/56 11/12 0300 98.2 64 18 122/56 11/12 0200 98.2 64 18 122/56 11/12 0000 98.2 64 18 122/56 11/11 2216 98.2 64 18 122/56 96 Room Air 11/11 2200 98.2 64 18 122/56 11/11 1800 98.3 72 16 120/80 11/11 1355 98.1 69 20 120/80 95 on exam; aox3, nad. cv; s1,s2, rrr resp; clear abd; soft, nt, bs+ ext; no edema Laboratory Tests 11/12 0745 Chemistry Sodium (137 - 145 mmol/L) 139 Potassium (3.5 - 5.1 mmol/L) 4.8 Chloride (98 - 107 mmol/L) 104 Carbon Dioxide (22 - 30 mmol/L) 23 Anion Gap (5 - 16) 13 BUN (9 - 20 mg/dL) 22 H Creatinine (0.7 - 1.2 mg/dL) 1.0 Estimated GFR (>60 ml/min) > 60 BUN/Creatinine Ratio (7 - 25 %) 22.0 Total Bilirubin (0.2 - 1.3 mg/dL) 0.6 Direct Bilirubin (< 0.4 mg/dL) 0.4 AST (17 - 59 U/L) 15 L ALT (21 - 72 U/L) 17 L Alkaline Phosphatase (< 127 U/L) 95 Total Protein (6.3 - 8.2 g/dL) 6.8 Albumin (3.5 - 5.0 g/dL) 3.7 Hematology CBC w Diff NO MAN DIFF REQ WBC (4.8 - 10.8 /CUMM) 8.6 RBC (4.70 - 6.10 /CUMM) 4.64 L Hgb (14.0 - 18.0 G/DL) 14.2 Hct (42 - 52 %) 42.2 MCV (80.0 - 94.0 FL) 90.9 MCH (27.0 - 31.0 PG) 30.6 MCHC (33.0 - 37.0 G/DL) 33.7 RDW (11.5 - 14.5 %) 14.3 Plt Count (130 - 400 /CUMM) 294 MPV (7.4 - 10.4 FL) 8.3 Gran % (42.2 - 75.2 %) 68.3 Lymphocytes % (20.5 - 51.1 %) 21.9 Monocytes % (1.7 - 9.3 %) 7.7 Eosinophils % (0 - 5 %) 1.5 Basophils % (0.0 - 2.0 %) 0.6 Absolute Granulocytes (1.4 - 6.5 /CUMM) 5.9 Absolute Lymphocytes (1.2 - 3.4 /CUMM) 1.9 Absolute Monocytes (0.10 - 0.60 /CUMM) 0.7 H Absolute Eosinophils (0.0 - 0.7 /CUMM) 0.1 Absolute Basophils (0.0 - 0.2 /CUMM) 0.1 A/P; 62-year-old male with acute alcohol intoxication and history of hypertension. We'll continue to taper Ativan. It'll be 0.5 mg twice a day today and 0.5 mg 1 dose tomorrow. Continue the rest of the medications and patient is likely going to be discharged to [facility] tomorrow
[2017-11-13] VITALS (10 sets, daily range): BP systolic 123–158; BP diastolic 76–80
--- NOTE | 2017-11-13 07:37 | PN- Housestaff ---
See Addendum Subjective Follow-up For: Alcohol withdrawal Subjective: No overnight events. Patient received 3 mg lorazepam yesterday for CIWA greater than 8. This morning, he is feeling a little anxious but otherwise okay. Review of Systems Constitutional: Reports: no symptoms. EENTM: Reports: no symptoms. Cardiovascular: Reports: no symptoms. Respiratory: Reports: no symptoms. Gastrointestinal: Reports: no symptoms. Genitourinary: Reports: no symptoms. Musculoskeletal: Reports: no symptoms. Skin: Reports: no symptoms. Neurological/Psychological: Reports: see HPI. Hematologic/Endocrine: Reports: no symptoms. Immunologic/Allergic: Reports: no symptoms. Objective Last 24 Hrs of Vital Signs/I&O Vital Signs Date Time Temp Pulse Resp B/P B/P Pulse O2 O2 Flow FiO2 Mean Ox Delivery Rate 11/13 0632 98.4 56 18 124/76 98 Room Air 11/12 2207 98.0 61 18 122/80 97 Room Air 11/12 2000 98.0 61 16 122/80 11/12 1600 98.0 62 16 110/80 11/12 1411 98.1 60 20 110/80 97 11/12 0859 58 118/60 11/12 0859 58 118/60 11/12 0858 58 118/60 Intake & Output 11/13 0800 11/13 0000 11/12 1600 Intake Total 964 423 2649 Output Total Balance 513 249 4201 Intake, Oral 139 103 6759 Number 0 Bowel Movements Physical Exam General Appearance: Alert, Oriented X3, Cooperative, Mild Distress Cardiovascular: Regular Rate, Normal S1, Normal S2 Lungs: Clear to Auscultation Abdomen: Normal Bowel Sounds, Soft, No Tenderness Extremities: No Edema, Normal Pulses, No Tenderness/Swelling Current Medications: Current Medications Sig/Venkatesh Start time Last Medication Dose Route Stop Time Status Admin Amlodipine Besylate 10 MG DAILY 11/06 1209 AC 11/12 PO 0859 Clonidine 0.2 MG DAILY 11/07 0900 AC 11/12 PO 0858 Enoxaparin Sodium 40 MG DAILY 11/07 09 AC 11/12 SC 0858 Gabapentin 300 MG Q8 11/06 1400 AC 11/13 PO 0602 Lisinopril 20 MG DAILY 11/07 0900 AC 11/12 PO 0859 Lorazepam 0.5 MG BID 11/12 2100 AC 11/12 PO 11/13 1200 2102 Lorazepam 0.5 MG Q8 11/11 1400 DC 11/12 PO 11/18 1359 0532 Lorazepam 1 MG Q2P PRN 11/09 0700 DC 11/12 PO 1833 Melatonin 3 MG ONCE ONE 11/13 0230 DC 11/13 PO 11/13 0231 0229 Multivitamins 1 TAB DAILY 11/05 1515 AC 11/12 PO 0859 Nicotine 14 MG DAILY 11/06 2057 AC 11/12 TOP 0858 Thiamine HCl 100 MG DAILY 11/05 1515 AC 11/12 PO 0859 Last 24 Hrs of Lab/Rocky Results Last 24 Hrs of Labs/Mics: Laboratory Tests 11/12/17 0745: Anion Gap 13, Estimated GFR > 60, BUN/Creatinine Ratio 22.0, Total Bilirubin 0.6 , Direct Bilirubin 0.4, AST 15 L, ALT 17 L, Alkaline Phosphatase 95, Total Protein 6.8, Albumin 3.7, CBC w Diff NO MAN DIFF REQ, RBC 4.64 L, MCV 90.9, MCH 30.6, MCHC 33.7, RDW 14.3, MPV 8.3, Gran % 68.3, Lymphocytes % 21.9, Monocytes % 7.7, Eosinophils % 1.5, Basophils % 0.6, Absolute Granulocytes 5.9, Absolute Lymphocytes 1.9, Absolute Monocytes 0.7 H, Absolute Eosinophils 0.1, Absolute Basophils 0.1 Assessment/Plan Assessment: Mr. Funez is a 62-year-old male with past medical history of hypertension, hyperlipidemia, and alcohol abuse who presented seeking detox from alcohol. Problem List: 1. Alcohol withdrawal 2. Normocytic anemia 3. Hypertension #Alcohol withdrawal: Patient requested detox on arrival. [place] has been scoring 0 -8. He has required 3 mg of PO lorazepam in addition to the standing lorazepam in last 24H. -Lorazepam 0.5 mg every daily, then stop -[facility] protocol -Multivitamins, thiamine, folic acid -Social work consult - he will be going [facility] when medically stabilized, likely this afternoon or tomorrow #Hypertension: Patient hypertensive to 200 systolic on admission, improved with lisinopril and amlodipine. He has been normotensive since then. -Continue lisinopril, clonidine and amlodipine. -Monitor BP #Normocytic anemia: Likely secondary to alcohol use. Iron studies normal. -CTM #Chronic medical problems: -Continue other home medications DVT prophylaxis with enoxaparin Heart healthy diet Full code Problem List: 1. Alcohol withdrawal Pain Ratin Pain Location: no Pain Goal: Remain pain free Pain Plan: no Tomorrow's Labs & Rationales: no
--- NOTE | 2017-11-13 09:07 | Patient Discharge Instructions ---
Discharge Instructions General Discharge Information You were seen/treated for: Alcohol withdrawal Watch for these problems: Fever, chest pain, shortness of breath Special Instructions: Please take all medications as directed. Please follow up with primary care. Please abstain from all alcohol use. Diet Continue normal diet: Yes Activity Full Activity/No Limits: Yes Acute Coronary Syndrome Inclusion Criteria At DC or during hospital stay patient has or had the following: ACS DIAGNOSIS No Discharge Core Measures Meds if any: Prescribed or Continued at Discharge Meds if any: NOT Prescribed or Continued at Discharge Congestive Heart Failure Inclusion Criteria At DC or during hospital stay patient has or had the following: CHF DIAGNOSIS No Discharge Core Measures Meds if any: Prescribed or Continued at Discharge Meds if any: NOT Prescribed or Continued at Discharge Cerebrovascular accident Inclusion Criteria At DC or during hospital stay patient has or had the following: CVA/TIA Diagnosis No Discharge Core Measures Meds if any: Prescribed or Continued at Discharge Meds if any: NOT Prescribed or Continued at Discharge Venous thromboembolism Inclusion Criteria VTE Diagnosis No VTE Type NONE VTE Confirmed by (Test) NONE Discharge Core Measures - Per Current guidelines, there needs to be overlap - treatment for the first 5 days of Warfarin therapy. - If discharged on Warfarin prior to 5 days of - overlap therapy, the patient will need to be - assessed for post discharge needs including - *Post discharge parental anticoagulation - *Warfarin and/or parental anticoagulation education - *Follow up date to check INR post discharge At least 5 days overlap therapy as Inpatient No Meds if any: Prescribed or Continued at Discharge Note: Overlap Therapy is Warfarin and Anticoagulant Meds if any: NOT Prescribed or Continued at Discharge
--- NOTE | 2017-11-13 11:44 | Discharge Summary ---
Visit Information Visit Dates Admission Date: 11/06/17 Discharge Date: 11/14/17 Hospital Course Course Attending Physician: Kath Han MD Primary Care Physician: Patient Has No Primary Care Dr Hospital Course: 62-year-old gentleman with past medical history of hypertension, hyperlipidemia, tobacco use and history of alcohol abuse presented to the ED on 11/05/2012 requesting alcohol detox. On presentation, vitals: Temperature 97.5, heart rate 80, respiratory rate 20. Blood pressure 180/110. Labs. Hemoglobin 13.4, MCV 90.5. Normal BEP. Alkaline phosphatase of 128, alcohol level at the time of admission less than 10. 1. Alcohol withdrawal. Patient was started on CIWA protocol. He was given Ativan [id number] with taper as well as when necessary Ativan per CIWA. He was started on MVI, thiamine as well as folic acid. He waas also given hydroxyzine to help with his sx of anxiety. 2. Hypertension: Patient was found to be hypertensive upon admission. This was attributed to his lack of home antihypertensive regimen intake as well as early signs of withdrawal. He was started on home dose of lisinopril, clonidine and amlodipine. His blood pressures stabilized over the course of his stay, patient will be discharged on his same antihypertensive regimen. Patient remained stable to be discharged to [facility]. Full code. Allergies: Coded Allergies: No Known Allergies (11/05/17) Disposition Summary Disposition Principal Diagnosis: Alcohol detox Additional Diagnosis: Hypertensive urgency Discharge Disposition: SNF Discharge Instructions General Discharge Information Code Status: Full Code Patient's Diet: Heart healthy diet Patient's Activity: As tolerated. Follow-Up Instructions/Appts: Please find a primary care physician and follow-up with them as an outpatient. Discharge to [facility]. Medications at Discharge Discharge Medications: Continue taking these medications: Amlodipine Besylate (Amlodipine Besylate) 10 MG TABLET 1 Tablet ORAL DAILY Qty = 30 Comments: LAST TAKEN: 11/14/17 @ 9AM Lisinopril (Lisinopril) 20 MG TABLET 1 Tablet ORAL DAILY Qty = 30 Comments: LAST TAKEN: 11/14/17 @ 9 AM Clonidine HCl (Clonidine HCl) 0.2 MG TABLET 1 Tablet ORAL DAILY Qty = 60 Comments: LAST TAKEN: 11/14/17 @ 9 AM Start taking the following new medications: Multivitamin (One Daily Multivitamin) 1 EACH TABLET 1 Tablet ORAL DAILY Qty = 30 No Refills Instructions: . Thiamine HCl (Vitamin B-1) 100 MG TABLET 100 Milligram ORAL DAILY Qty = 30 No Refills Instructions: . Hydroxyzine Hydrochloride (Atarax) 25 MG TAB 25 Milligram ORAL 4 TIMES A DAY as needed for ANXIETY Qty = 60 No Refills Instructions: . Comments: LAST TAKEN: @ 11 AM Gabapentin (Gabapentin) 300 MG CAPSULE 300 Milligram ORAL EVERY 8 HOURS Qty = 90 No Refills Instructions: . Comments: LAST TAKEN: 11/14/17 @ 6 AM Nicotine (Nicotine Patch) 14 MG/24 HOUR PATCH.TD24 14 Milligram On the skin DAILY Qty = 30 No Refills Instructions: . Copies To: Darwin FRASER,Darwin Aguilar MD Review Statement Documenting Attending: Kath Han MD
[2017-11-14 05:37] VITALS: BP 118/68
[2017-11-14] MEDS ORDERED: GABAPENTIN300 M2 PO ×2 (07:17→09:11)
[2017-11-14] MEDS ORDERED: VITAMIN B-1100 MG PO ×2 (07:17→09:11)
[2017-11-14] MEDS ORDERED: HYDROXYZINE HCL25 M2 PO ×2 (07:17→09:11)
[2017-11-14] MEDS ORDERED: NICOTINE PATCH1 EAC2 TOP ×2 (07:17→09:11)
[2017-11-14] MEDS ORDERED: ONE DAILY MULT1 EAC2 PO ×2 (07:17→09:11)
--- NOTE | 2017-11-14 07:19 | PN- Housestaff ---
See Addendum Subjective Follow-up For: Alcohol withdrawal Subjective: No overnight events. Patient feels less anxious this morning. He says the medication worked well. He feels ready to go today. Review of Systems Constitutional: Reports: no symptoms. EENTM: Reports: no symptoms. Cardiovascular: Reports: no symptoms. Respiratory: Reports: no symptoms. Gastrointestinal: Reports: no symptoms. Genitourinary: Reports: no symptoms. Musculoskeletal: Reports: no symptoms. Skin: Reports: no symptoms. Neurological/Psychological: Reports: no symptoms. Hematologic/Endocrine: Reports: no symptoms. Immunologic/Allergic: Reports: no symptoms. Objective Last 24 Hrs of Vital Signs/I&O Vital Signs Date Time Temp Pulse Resp B/P B/P Pulse O2 O2 Flow FiO2 Mean Ox Delivery Rate 11/14 0537 97.6 65 20 118/68 97 Room Air 11/13 2200 98.0 58 18 158/80 11/13 2151 98.0 58 18 158/80 97 Room Air 11/13 1800 98.4 56 20 124/76 11/13 1600 98.4 56 20 124/76 11/13 1426 97.6 63 20 123/78 96 Room Air 11/13 1400 98.4 56 18 124/76 11/13 1200 98.4 56 20 124/76 11/13 1000 98.4 56 18 124/76 11/13 0949 98.4 56 18 124/76 11/13 0948 98.4 56 18 124/76 11/13 0948 98.4 56 18 124/76 11/13 0800 98.4 56 20 124/76 Intake & Output 11/14 0800 11/14 0000 11/13 1600 Intake Total 480 1000 Output Total Balance 480 1000 Intake, IV 1000 Intake, Oral 480 Physical Exam General Appearance: Alert, Oriented X3, Cooperative, No Acute Distress Cardiovascular: Regular Rate Lungs: Clear to Auscultation Abdomen: Normal Bowel Sounds, Soft, No Tenderness Extremities: No Edema, Normal Pulses, No Tenderness/Swelling Current Medications: Current Medications Sig/Venkatesh Start time Last Medication Dose Route Stop Time Status Admin Amlodipine Besylate 10 MG DAILY 11/06 1209 AC 11/13 PO 0948 Clonidine 0.2 MG DAILY 11/07 09 AC 11/13 PO 0948 Enoxaparin Sodium 40 MG DAILY 11/07 09 AC 11/13 SC 0947 Gabapentin 300 MG Q8 11/06 1400 AC 11/14 PO 0456 Hydroxyzine HCl 25 MG 4 TIMES/DAY PRN 11/13 1345 AC 11/14 PO 0456 Lisinopril 20 MG DAILY 11/07 0900 AC 11/13 PO 0949 Lorazepam 0.5 MG BID 11/12 2100 DC 11/13 PO 11/13 1200 0948 Lorazepam 1 MG Q2P PRN 11/09 0700 DC 11/12 PO 1833 Melatonin 5 MG AT BEDTIME 11/13 2100 AC 11/13 PO 2049 Multivitamins 1 TAB DAILY 11/05 1515 AC 11/13 PO 0949 Nicotine 14 MG DAILY 11/06 2057 AC 11/13 TOP 0947 Patient Medication 1 ED ONE ONE 11/13 1715 DC 11/13 Teaching ED 11/13 Thiamine HCl 100 MG DAILY 11/05 1515 AC 11/13 PO 0948 Assessment/Plan Assessment: Mr. Funez is a 62-year-old male with past medical history of hypertension, hyperlipidemia, and alcohol abuse who presented seeking detox from alcohol. Problem List: 1. Alcohol withdrawal 2. Normocytic anemia 3. Hypertension #Alcohol withdrawal: Patient requested detox on arrival. CIWA has been scoring 0 -6. He has been off of lorazepam for 24 hours. -Hydroxyzine for anxiety -[facility] protocol -Multivitamins, thiamine, folic acid -Social work consult - he will be going to [facility] when medically stabilized, likely today #Hypertension: Patient hypertensive to 200 systolic on admission, improved with lisinopril and amlodipine. He has been normotensive since then. -Continue lisinopril, clonidine and amlodipine. -Monitor BP #Normocytic anemia: Likely secondary to alcohol use. Iron studies normal. -CTM #Chronic medical problems: -Continue other home medications DVT prophylaxis with enoxaparin Heart healthy diet Full code Problem List: 1. Alcohol withdrawal Pain Ratin Pain Location: no Pain Goal: Remain pain free Pain Plan: no Tomorrow's Labs & Rationales: no
[2017-11-14 08:00] VITALS: BP 118/68
[2017-11-14 08:27] VITALS: BP 118/68
== END 2017-11-14 11:00 | DRG 897 ==
LOC: ERH 14:05 → 2NA 11-06 18:28 → ERHI 11-06 18:28 → ENRESERV 11-06 19:04 → ENTRNSPT 11-06 19:42 → EDTRNSPTSTS 11-06 19:46 → EDTRNSPT 11-06 19:46 → 2NA 11-06 19:54 → CMPTRNSPT 11-06 19:57 → 2NA 11-07 18:34 → ENPENDDIS 11-14 09:08 → 2NA 11-14 11:00
PROVIDERS: Internal Medicine; Internal Medicine Hematology & Oncology; Physician Assistant Medical
DX: F10.239 Alcohol dependence with withdrawal, unspecified (principal); D64.9 Anemia, unspecified; E78.5 Hyperlipidemia, unspecified; I10 Essential (primary) hypertension; Y90.7 Blood alcohol level of 200-239 mg/100 ml; F17.210 Nicotine dependence, cigarettes, uncomplicated; I16.0 Hypertensive urgency
CPT/HCPCS: 2NASP; 36592; 80307; 82436; 93005; 93010; 96361; 96374; 96376; G0480; J1650; J3490